=== PATIENT | female | born 1990 | race Caucasian/White ===

== ENCOUNTER 2018-03-12 10:06 | Emergency (ER) | payer BC ==
[~2018-03-12] VITALS: Ht 162.6 cm; Wt 133.8 kg
[~2018-03-12 10:06] MED LIST: DONNATAL1 TAB PO; HYDROCODONE/ACE1 TA2 PO; MYL80 CH; NOR10T PO
[2018-03-12 10:10] VITALS: Ht 162.6 cm; Wt 133.8 kg
[2018-03-12 10:47] VITALS: BP 180/109
== END 2018-03-12 10:47 | disposition home or self-care (01) ==
LOC: ED 10:06
DX: G51.0 Bell's palsy (principal)

== ENCOUNTER 2018-03-22 16:12 | Emergency (ER) | payer BC ==
[~2018-03-22] VITALS: Ht 162.6 cm; Wt 132.0 kg
[2018-03-22 16:28] VITALS: Ht 162.6 cm; Wt 132.0 kg
[2018-03-22 18:36] VITALS: BP 140/84
== END 2018-03-22 18:36 | disposition home or self-care (01) ==
LOC: ED 16:12
DX: G50.0 Trigeminal neuralgia (principal); M54.81 Occipital neuralgia
CPT/HCPCS: 20552; J1885